=== PATIENT | female | born 1965 | race Caucasian/White ===

== ENCOUNTER → 2017-01-01 | Outpatient (CLI) | payer OTHER ==
--- NOTE | 2017-01-02 08:34 | XR ---
EXAMINATION TYPE: XR chest 2V DATE OF EXAM: 01/01/2017 COMPARISON: NONE HISTORY: Difficulty breathing and tobacco abuse TECHNIQUE: Frontal and lateral views of the chest are obtained. FINDINGS: There is no focal air space opacity, pleural effusion, or pneumothorax seen. The cardiac silhouette size is within normal limits. The osseous structures are intact. Mild degenerative connor es are seen of the thoracic spine. IMPRESSION: No acute cardiopulmonary process.
--- NOTE | 2017-01-02 08:34 | XR ---
EXAMINATION TYPE: XR knee complete LT DATE OF EXAM: 01/01/2017 COMPARISON: NONE HISTORY: Pain TECHNIQUE: Four views are submitted. FINDINGS: Small hypertrophic spurs are seen. Mild narrowing of the joint space in the tricompartment spaces no erosive changes. Osseous structures are intact. No acute fracture seen. IMPRESSION: 1. No acute fracture or dislocation. 2. Mild arthritic change correlate for osteoarthritis.
--- NOTE | 2017-01-02 08:37 | XR ---
EXAMINATION TYPE: XR cervical spine comp DATE OF EXAM: 01/01/2017 COMPARISON: NONE HISTORY: Neck pain TECHNIQUE: Four views are submitted. FINDINGS: The odontoid is intact. There are no compression deformities. The prevertebral soft tissue structur es are within normal limits. Multilevel facet arthropathy noted. There is hypertrophic spurring invo lving the mid and lower cervical spine with disc space loss. Foraminal encroachment at C5-6 and C6-C7 suspected. Foraminal encroachment C3-4 and the left suspected. IMPRESSION: 1. Multilevel degenerative disc disease with the most marked findings involving the mid and lower cer vical region. Correlate with MRI. Multilevel foraminal encroachment suspected.
== END | disposition home or self-care (01) ==
LOC: RADXRMAIN 15:37
PROVIDERS: ATTEND Internal Medicine
DX: M17.12 Unilateral primary osteoarthritis, left knee (principal); M50.320 Other cervical disc degeneration, mid-cervical region, unspecified level; R53.83 Other fatigue; Z72.0 Tobacco use
CPT/HCPCS: 71020; 72050

== ENCOUNTER → 2018-08-19 | Outpatient (CLI) | payer OTHER ==
--- NOTE | 2018-08-20 11:58 | MM ---
Reason for exam: screening (asymptomatic). Last mammogram was performed 1 year and 4 months ago. History: Patient is postmenopausal. Family history of breast cancer in sister at age 56, breast cancer in maternal grandmother at age 40, breast cancer in maternal aunt, and breast cancer in mother at age 60. Physical Findings: A clinical breast exam by your physician is recommended on an annual basis and results should be correlated with mammographic findings. MG Screening Mammo w CAD Bilateral CC, MLO, and XCCL view(s) were taken. Prior study comparison: April 22, 2017, bilateral MG screening mammo w CAD. March 06, 2016, bilateral foundation screening mammo. There are scattered fibroglandular densities. Benign appearing bilateral calcifications. No suspicious abnormality. No significant changes when compared with prior studies. ASSESSMENT: Benign, BI-RAD 2 RECOMMENDATION: Routine screening mammogram of both breasts in 1 year.
== END | disposition home or self-care (01) ==
LOC: RADMAMWWP 14:05
PROVIDERS: ATTEND Internal Medicine
DX: Z12.31 Encounter for screening mammogram for malignant neoplasm of breast (principal)
CPT/HCPCS: 77067

== ENCOUNTER → 2019-02-18 | Outpatient (CLI) | payer MEDICAID ==
--- NOTE | 2019-02-18 12:03 | US ---
EXAMINATION TYPE: US abdomen complete DATE OF EXAM: 02/18/2019 COMPARISON: NONE CLINICAL HISTORY: R10.12 luq pain. Pt states LUQ pain x few months EXAM MEASUREMENTS: Liver Length: 18.3 cm CBD: 0.5 cm Spleen: 13.9 cm Right Kidney: 9.8 x 4.7 x 4.9 cm Left Kidney: 10.3 x 4.9 x 3.9 cm Large pt body habitus Pancreas: wnl, tail obscured by overlying bowel gas Liver: Enlarged. There is increased echogenicity of the hepatic parenchyma with diminished visualiza tion of the portal triads most commonly relating to hepatic steatosis and limiting evaluation for und erlying hepatic masses. Gallbladder: Possible wall echo shadow sign, pt states GB not removed, wall thickness unable to be d elineated Evidence for sonographic Brown's sign: No CBD: wnl Spleen: Upper limits of normal Right Kidney: wnl Left Kidney: wnl Upper IVC: wnl Abd Aorta: Obscured by overlying bowel gas The liver is homogenous. The intrahepatic portion of the IVC is within normal limits. Common bile du ct is unremarkable. The visualized portions of the pancreas are homogenous. The spleen is unremarka ble. Kidneys are symmetric and free of hydronephrosis. No renal lesions are seen. IMPRESSION: 1. Spleen approaches the size criteria for spinal megaly. 2. Gallbladder appears to be filled with calculi and contracted giving the appearance of the wall ech o shadow sign. Common bile duct is within normal limits of size. 3. Obscuration of the pancreatic tail and aorta by overlying bowel gas. 4. Hepatomegaly. Sonographic findings most commonly related to hepatic steatosis. Correlate with live r function tests.
== END | disposition home or self-care (01) ==
LOC: RADUSWWP 10:34
PROVIDERS: ATTEND Internal Medicine
DX: K76.0 Fatty (change of) liver, not elsewhere classified (principal); R16.0 Hepatomegaly, not elsewhere classified; K80.20 Calculus of gallbladder without cholecystitis without obstruction; K86.89 Other specified diseases of pancreas; R14.3 Flatulence
CPT/HCPCS: 76700

== ENCOUNTER 2019-03-23 07:58 | Day surgery (SDC) | payer MEDICAID ==
[2019-03-19 15:49] VITALS: BMI 42.9
[~2019-03-23 07:58] MED LIST: DEXAMETHASONE SOD PHOSPHATE 10 MG/ML 1 ML VIAL IV ONE; HEPARIN SODIUM,PORCINE 5,000 UNIT/ML 1 ML VIAL SQ ONE; HYDROmorphone 0.5 MG/0.5 ML SYRINGE IVP PRN; KETOROLAC 30 MG/ML 1 ML VIAL IVP SCH; LACTATED RINGERS 1,000 ML IV SCH; LIDOCAINE 1% 20 ML VIAL (10MG/ML) FOR IV START INTRADERMA PRN; METOCLOPRAMIDE 5 MG/ML 2 ML VIAL IVP PRN; ONDANSETRON 4 MG/2 ML VIAL IVP ONE
--- NOTE | 2019-03-23 08:38 | P.GSHP ---
History of Present Illness H&P Date: 03/23/19 Chief Complaint: Right upper quadrant pain This is a 53-year-old female who presents today for laparoscopic cholecystectomy. Patient's had complaints of right quadrant pain. Her recent ultrasound shows evidence of cholelithiasis. Past Medical History Past Medical History: Hypertension, Rheumatoid Arthritis (RA) Additional Past Medical History / Comment(s): umbilical hernia, shortness of breath with activity,diverticulitis History of Any Multi-Drug Resistant Organisms: None Reported Past Surgical History: Appendectomy, Section Additional Past Surgical History / Comment(s): ruptured appendix, obstructed bowel age 1 Past Anesthesia/Blood Transfusion Reactions: No Reported Reaction, Family Hist ory of Problems w/ Anesthesia Additional Past Anesthesia/Blood Transfusion Reaction / Comment(s): father difficulty when having scope done quit breathing able to revive Smoking Status: Current every day smoker - Past Family History Father Family Medical History: Cancer Additional Family Medical History / Comment(s): lung cancer Sister(s) Additional Family Medical History / Comment(s): at 31 of lupus Mother Family Medical History: Cancer, Dementia Additional Family Medical History / Comment(s): hx lupus, breast cancer Brother(s) Additional Family Medical History / Comment(s): 5 brothers ,. 1st brother blood clot after bariatric surgery. 2nd brother had agent orange infection from hip surgery and blood clot Medications and Allergies Home Medications Medication Instructions Recorded Confirmed Type Lexapro (Unkn.Dose) 1 tab PO DAILY 03/19/19 03/19/19 History Metoprolol Tartrate [Lopressor] 50 mg PO DAILY 03/19/19 03/19/19 History Naproxen Sodium [Aleve] 220 mg PO DAILY PRN 03/19/19 03/19/19 History Allergies Allergy/AdvReac Type Severity Reaction Status Date / Time latex Allergy Rash/Hives Verified 03/19/19 15:31 Sulfa (Sulfonamide Allergy Anaphylaxis Verified 03/19/19 15:31 Antibiotics) Surgical - Exam Vital Signs Temp Pulse Resp BP Pulse Ox 96.5 F L 81 18 141/95 93 L 03/23/19 08:20 03/23/19 08:20 03/23/19 08:20 03/23/19 08:20 03/23/19 08:20 - General well developed, well nourished, no distress - Eyes PERRL - ENT normal pinna - Neck no masses - Respiratory normal expansion - Cardiovascular Rhythm: regular - Abdomen Mild right upper quadrant tenderness Abdomen: soft Assessment and Plan Assessment: Right upper quadrant pain. We'll perform laparoscopic cholecystectomy.
[2019-03-23 09:05] LABS: Basophils % (A) 0 %; Eosinophils # (A) 0.2 k/uL (0-0.7); Eosinophils % (A) 2 %; HCT 46.4 % (34.0-46.0); HGB 16.1 gm/dL (11.4-16.0); Lymphocytes # (A) 1.6 k/uL (1.0-4.8); Lymphocytes % (A) 20 %; MCH 32.9 pg (25.0-35.0); MCHC 34.8 g/dL (31.0-37.0); MCV 94.6 fL (80.0-100.0); Mean Platelet Volume 7.3; Monocytes # (A) 0.3 k/uL (0-1.0); Monocytes % (A) 4 %; Neutrophils % (A) 72 %; Platelet Count 151 k/uL (150-450); RDW 13.3 % (11.5-15.5); WBC 8.3 k/uL (3.8-10.6)
[2019-03-23] MEDS ORDERED: ROCURONIUM BROMIDE 10 MG/ML 10 ML VIAL IV ONE (09:20)
[2019-03-23] MEDS ORDERED: SUCCINYLCHOLINE CHLORIDE 100 MG/5 ML SYR IV ONE (09:20)
[2019-03-23] MEDS ORDERED: MIDAZOLAM 2 MG/2 ML VIAL ONE (09:20)
[2019-03-23] MEDS ORDERED: GLYCOPYRROLATE 0.2 MG/ML 2 ML VIAL ONE (09:20)
[2019-03-23] MEDS ORDERED: PROPOFOL 10 MG/ML 20 ML VIAL IV ONE (09:20)
[2019-03-23] MEDS ORDERED: fentaNYL (PF) 50 MCG/ML 2 ML AMP ONE (09:20)
[2019-03-23] MEDS ORDERED: METOPROLOL TARTRATE 5 MG/5 ML VIAL IVP ONE (09:20)
[2019-03-23] MEDS ORDERED: NEOSTIGMINE 1 MG/ML 10 ML VIAL ONE (09:20)
[2019-03-23] MEDS ORDERED: KETOROLAC 30 MG/ML 1 ML VIAL ONE (09:20)
[2019-03-23] MEDS ORDERED: ePHEDrine SULFATE/0.9% NACL/PF 50 MG/5 ML SYRINGE IV ONE (09:20)
[2019-03-23] MEDS ORDERED: BUPIVACAINE (PF) 0.5% 30 ML VIAL SQ ONE (09:30)
[2019-03-23] MEDS ORDERED: LACTATED RINGERS 1,000 ML IV ONE (10:15)
--- NOTE | 2019-03-23 10:52 | P.OP ---
Date of Procedure: 03/23/19 Preoperative Diagnosis: Cholecystitis Postoperative Diagnosis: Cholecystitis Cholelithiasis Adenomyosis of gallbladder wall Procedure(s) Performed: Colonoscopy Anesthesia: MAC Surgeon: Allen Cochran Estimated Blood Loss (ml): 20 Pathology: other (Gallbladder) Condition: stable Disposition: PACU Description of Procedure: TThe patient was placed on the operating table. The patient received a general endotracheal tube anesthesia. The patients abdomen was prepped and draped in the usual sterile fashion. Through an infraumbilical stab incision, the fascia of the anterior abdominal wall was grasped with a pair of Kochers and then the Veress needle was placed in the peritoneal cavity. Position of the Veress needle was confirmed with positive drop test. The abdomen was then insufflated. After adequate insufflation, the 10 mm trocar was placed in the peritoneal cavity. Following this the laparoscope was placed in the peritoneal cavity. The patient was placed in the head-up, right side up position and then a 5 mm trocar was placed in the right lateral and right subcostal position under direct visualization. A 8 mm trocar was placed in the epigastric position. The gallbladder wall was quite thickened. The gallbladder was grasped in the fundus and infundibulum. Traction on the gallbladder was placed in the lateral and the cephalad positions. The triangle of Calot was visualized.. There was significant inflammation along the gallbladder and cystic duct. At this point the gallbladder was taken down in a domed down fashion. The infundibulum the gallbladder was then ligated using 2-0 Ethibond tied a device. The gallbladder was then cut and then the Endoloop PDS suture was placed around the gallbladder/cystic duct stump. The gallbladder was placed into an Endo Catch and brought out through the epigastric port site. The abdomen was inspected for bleeding. There is no bleeding seen. The abdomen was irrigated. Operative field was checked for any bleeding spots and Harmonic scissors was used to coagulate the liver bed. The abdomen was irrigated. The trocars were removed. The skin was closed using interrupted 3-0 Vicryl suture. Dermabond dressing were applied. The patient tolerated the procedure well.
[2019-03-23] MEDS ORDERED: DOXAPRAM 20 MG/ML 20 ML VIAL IV ONE (10:59)
[2019-03-23 11:14] VITALS: TEMP 97.9
[2019-03-23 12:50] VITALS: RESP 18
[2019-03-23 13:19] VITALS: BP 121/72; PULSE 63
== END 2019-03-23 13:25 | disposition home or self-care (01) ==
LOC: OR 07:58
PROVIDERS: ATTEND Surgery
DX: K80.10 Calculus of gallbladder with chronic cholecystitis without obstruction (principal); K82.8 Other specified diseases of gallbladder; I10 Essential (primary) hypertension; F39 Unspecified mood [affective] disorder; K57.90 Diverticulosis of intestine, part unspecified, without perforation or abscess without bleeding; M06.9 Rheumatoid arthritis, unspecified; F17.200 Nicotine dependence, unspecified, uncomplicated; Z88.2 Allergy status to sulfonamides; Z91.040 Latex allergy status; Z79.899 Other long term (current) drug therapy; Z90.49 Acquired absence of other specified parts of digestive tract; Z80.1 Family history of malignant neoplasm of trachea, bronchus and lung; Z80.3 Family history of malignant neoplasm of breast; Z83.2 Family history of diseases of the blood and blood-forming organs and certain disorders involving the immune mechanism; Z81.8 Family history of other mental and behavioral disorders; Z87.19 Personal history of other diseases of the digestive system
CPT/HCPCS: 94660; 88304; 85025; 47562; J2250; J1644; J1100; J2710; J0690; J2405; J3010; J1885; J0330; J2704

== ENCOUNTER 2019-04-14 08:55 | Day surgery (SDC) | payer MEDICAID ==
[2019-04-13 12:05] VITALS: BMI 42.9
[~2019-04-14 08:55] MED LIST changes: -KETOROLAC 30 MG/ML 1 ML VIAL IVP SCH; -LIDOCAINE 1% 20 ML VIAL (10MG/ML) FOR IV START INTRADERMA PRN; -METOCLOPRAMIDE 5 MG/ML 2 ML VIAL IVP PRN; +MIDAZOLAM 2 MG/2 ML VIAL IV PRN; +SCOPOLAMINE 1.5MG/72HR PATCH TRANSDERM ONE
[2019-04-14] MEDS ORDERED: LIDOCAINE 1% 20 ML VIAL (10MG/ML) FOR IV START INTRADERMA ONE (10:10)
--- NOTE | 2019-04-14 10:58 | P.GSHP ---
History of Present Illness H&P Date: 04/14/19 Chief Complaint: Umbilical hernia This a 53-year-old female who has developed an umbilical hernia. Patient rents today for laparoscopic robotic-assisted repair. Past Medical History Past Medical History: Hypertension, Rheumatoid Arthritis (RA) Additional Past Medical History / Comment(s): umbilical hernia,shortness of breath with activity,diverticulitis History of Any Multi-Drug Resistant Organisms: None Reported Past Surgical History: Appendectomy, Cholecystectomy Additional Past Surgical History / Comment(s): Cholecystecomy 03-23-19,ruptured appendix,obstructed bowel age 1 Past Anesthesia/Blood Transfusion Reactions: Family History of Problems w/ Anesthesia Additional Past Anesthesia/Blood Transfusion Reaction / Comment(s): father difficulty when having scope doneqit breathing able to revive Smoking Status: Current every day smoker - Past Family History Brother(s) Family Medical History: Deep Vein Thrombosis (DVT) Additional Family Medical History / Comment(s): 5 brothers , blood clot after bariatric surgery,agent orange,infection from hip surgery and blood clot. Mother Family Medical History: Cancer, Dementia Additional Family Medical History / Comment(s): hx lupus,breast cance Sister(s) Additional Family Medical History / Comment(s): at age 31 with lupus Father Family Medical History: Cancer Additional Family Medical History / Comment(s): lung cancer Medications and Allergies Home Medications Medication Instructions Recorded Confirmed Type Escitalopram [Lexapro] 20 mg PO QAM 03/19/19 04/14/19 History Metoprolol Tartrate [Lopressor] 50 mg PO QAM 03/19/19 04/14/19 History Naproxen Sodium [Aleve] 220 mg PO DAILY PRN 03/19/19 04/14/19 History Docusate [Colace] 100 mg PO BID #20 capsule 03/23/19 04/14/19 Rx Allergies Allergy/AdvReac Type Severity Reaction Status Date / Time latex Allergy Rash/Hives Verified 04/14/19 09:56 Sulfa (Sulfonamide Allergy Anaphylaxis Verified 04/14/19 09:56 Antibiotics) Surgical - Exam Vital Signs Temp Pulse Resp BP Pulse Ox 97.4 F L 71 16 163/93 96 04/14/19 09:57 04/14/19 09:57 04/14/19 09:57 04/14/19 09:57 04/14/19 09:57 - General well developed, well nourished, no distress - Eyes PERRL - ENT normal pinna, normal nares - Neck no masses - Respiratory normal expansion - Cardiovascular Rhythm: regular - Abdomen Abdomen: soft, non tender Hernia: umbilical Assessment and Plan Assessment: Incarcerated we'll hernia. We'll perform laparoscopic robotic-assisted repair.
--- NOTE | 2019-04-14 11:11 | P.ANPRN ---
Procedure Note - Anesthesia - Nerve Block Performed Bilateral Transversus Abdominis Single Time Out Performed: Yes Date of Procedure: 04/14/19 Procedure Start Time: 10:54 Procedure Stop Time: 11:06 Location of Patient: PreOp Indication: Acute Post-Operative Pain, Requested by Surgeon Sedation Type: Sedate with meaningful contact maintained Preparation: Sterile Prep, Sterile Dressing Position: Supine Catheter: None Needle Types: Pajunk Needle Gauge: 20 Ultrasound used to visualize needle placement: Yes Ultrasound used to observe medication spread: Yes Injectate: 0.5% Ropivacaine (see comment for volume) (15 ml per side) Blood Aspirated: No Pain Paresthesia on Injection Noted: No Resistance on Injection: Normal Image Stored and Saved: Yes Events: Uneventful and Well Tolerated
[2019-04-14] MEDS ORDERED: IPRATROPIUM-ALBUTEROL 3 ML NEB INHALATION STA (11:13)
[2019-04-14] MEDS ORDERED: ROCURONIUM BROMIDE 10 MG/ML 10 ML VIAL IV ONE (11:21)
[2019-04-14] MEDS ORDERED: NEOSTIGMINE 1 MG/ML 10 ML VIAL ONE (11:21)
[2019-04-14] MEDS ORDERED: SUCCINYLCHOLINE CHLORIDE 100 MG/5 ML SYR IV ONE (11:21)
[2019-04-14] MEDS ORDERED: DEXAMETHASONE SOD PHOSPHATE 4 MG/ML 1 ML VIAL ONE (11:21)
[2019-04-14] MEDS ORDERED: GLYCOPYRROLATE 0.2 MG/ML 2 ML VIAL ONE (11:21)
[2019-04-14] MEDS ORDERED: KETOROLAC 30 MG/ML 1 ML VIAL ONE (11:21)
[2019-04-14] MEDS ORDERED: MIDAZOLAM 2 MG/2 ML VIAL ONE (11:21)
[2019-04-14] MEDS ORDERED: LIDOCAINE 1% INJ 10MG/ML (20 ML MDV) ONE (11:21)
[2019-04-14] MEDS ORDERED: fentaNYL (PF) 50 MCG/ML 2 ML AMP ONE (11:21)
[2019-04-14] MEDS ORDERED: PROPOFOL 10 MG/ML 20 ML VIAL IV ONE (11:21)
[2019-04-14] MEDS ORDERED: BUPIVACAINE (PF) 0.25% 30 ML VIAL SQ ONE (11:50)
[2019-04-14] MEDS ORDERED: LACTATED RINGERS 1,000 ML IV ONE (12:24)
--- NOTE | 2019-04-14 12:27 | P.OP ---
Date of Procedure: 04/14/19 Preoperative Diagnosis: Incarcerated umbilical hernia Postoperative Diagnosis: Incarcerated umbilical hernia Procedure(s) Performed: Laparoscopic robotic system repair of incarcerated we'll hernia Partial omentectomy Anesthesia: ISMAELA Surgeon: Allen Cochran Estimated Blood Loss (ml): 10 Pathology: other (Omentum) Condition: stable Disposition: PACU Description of Procedure: The patient was placed on the operating table in the supine position. He received general anesthesia. His abdomen was prepped and draped usual fashion. Using a 5 mm optical trocar under direct visualization the peritoneal cavity was entered in the left upper quadrant. The abdomen was then insufflated. The laparoscope was placed back into the perineal cavity. Next a 8 mm robotic trocar was placed in the left lower quadrant and a 12 mm robotic trocar was placed in the left lateral position. The original 5 mm trocar was exchanged for a 8 mm robotic trocar. The patient's placed in the left side up position. And the patient was undocked the robot. The umbilical hernia was visualized. Using hook cautery the incarcerated omentum was dissected free and transected and sent to pathology. Using hook cautery the peritoneum over the umbilical hernia was excised. The fascial opening was repaired using 0V LOC suture. Next a piece of 11 cm round ventral light ST mesh was placed into the. Cavity and secured with 2 OV lock suture. The patient was undocked the robot. The needles were retrieved. The fascia of the 12 mm trocar site was closed with 0 Ethibond suture. Skin was closed interrupted 3-0 Monocryl suture. Dermabond dressings was applied. Patient top procedure well and was sent to recovery room stable condition.
[2019-04-14] MEDS ORDERED: FLUMAZENIL 0.1 MG/ML 5 ML VIAL IVP ONE (13:02)
[2019-04-14 13:07] LABS: Glucose,Whole Blood 155 mg/dL (75-99)
[2019-04-14] MEDS ORDERED: PHYSOSTIGMINE SALICYLATE 1 MG/ML 2 ML AMP IVP ONE (13:07)
[2019-04-14 13:15] VITALS: TEMP 96.8
[2019-04-14 14:29] VITALS: RESP 18
[2019-04-14] MEDS ORDERED: HYDROcodone/APAP 5-325MG 1 EACH TAB PO ONE (14:38)
[2019-04-14] MEDS ORDERED: ALBUTEROL NEBULIZED 2.5 MG/3 ML INHALATION STA (15:28)
[2019-04-14 15:36] VITALS: BP 130/84
[2019-04-14 15:53] VITALS: PULSE 61
== END 2019-04-14 16:10 | disposition home or self-care (01) ==
LOC: OR 08:55
PROVIDERS: ATTEND Surgery
DX: K42.0 Umbilical hernia with obstruction, without gangrene (principal); I10 Essential (primary) hypertension; F17.210 Nicotine dependence, cigarettes, uncomplicated; M06.9 Rheumatoid arthritis, unspecified; E66.01 Morbid (severe) obesity due to excess calories; Z87.19 Personal history of other diseases of the digestive system; Z79.899 Other long term (current) drug therapy; Z90.49 Acquired absence of other specified parts of digestive tract; Z98.890 Other specified postprocedural states; Z88.2 Allergy status to sulfonamides; Z91.040 Latex allergy status; Z68.41 Body mass index [BMI] 40.0-44.9, adult; Z82.49 Family history of ischemic heart disease and other diseases of the circulatory system; Z80.3 Family history of malignant neoplasm of breast; Z80.1 Family history of malignant neoplasm of trachea, bronchus and lung
CPT/HCPCS: 94660; 94640 ×2; 64488; 88302; 49653; C1781; J2250; J1644; J1100; J0690; J2405

== ENCOUNTER → 2022-10-30 | Outpatient (CLI) | payer MEDICARE, OTHER ==
--- NOTE | 2022-10-31 16:56 | MM ---
Reason for Exam: Screening (asymptomatic). Last mammogram was performed 4 year(s) and 2 month(s) ago. Patient History: Menarche at age 8. First Full-Term at age 24. Postmenopausal. Maternal grandmother had breast cancer, age 40. Maternal aunt had breast cancer. Sister had breast cancer, age 56. Mother had breast cancer, age 60. Risk Values: Riri 5 year model risk: 5.3%. NCI Lifetime model risk: 25.7%. Prior Study Comparison: 03/06/2016 Bilateral Screening Mammogram, [facility]. 04/22/2017 Bilateral Screening Mammogram, [facility]. 08/19/2018 Bilateral Screening Mammogram, [facility]. Tissue Density: There are scattered fibroglandular densities. Findings: Analyzed By CAD. Pattern appears stable. There are multiple scattered round and spherical calcifications present. Focal asymmetries in the posterior left breast, stable from comparison. No suspicious groups of microcalcifications, spiculated or lobular masses, architectural distortion or other secondary signs of malignancy are mammographically apparent. Overall Assessment: Benign, BI-RAD 2 Management: Screening Mammogram of both breasts in 1 year. A negative mammogram report should not preclude additional follow up of suspicious palpable abnormalities. Patient should continue monthly self breast exam. A clinical breast exam by your physician is recommended on an annual basis and results should be correlated with mammographic findings. Electronically signed and approved by: Adan Cope D.O. Radiologis
== END | disposition home or self-care (01) ==
LOC: RADMAMWWP 15:22
PROVIDERS: ATTEND Family Medicine
DX: Z12.31 Encounter for screening mammogram for malignant neoplasm of breast (principal); Z78.0 Asymptomatic menopausal state; Z80.3 Family history of malignant neoplasm of breast
CPT/HCPCS: 77063; 77067

== ENCOUNTER → 2022-12-05 | Outpatient (CLI) | payer MEDICARE, OTHER ==
--- NOTE | 2022-12-06 18:27 | CTL ---
EXAMINATION TYPE: CT Low Dose Lung DATE OF EXAM ORDERED: 12/05/2022 HISTORY: Z87.891. Current smoker, 35 pack year history. Lung cancer screening CT DLP: 134.[address] CTDI: 4.0 mGy Automated exposure control for dose reduction was used. SCREENING VISIT: First screening visit COMPARISON: None TECHNIQUE: Low dose computed tomography scan was performed through the chest at 1 mm thick sections a nd reconstructed images in multiple planes at 1 mm and [address] DIAGNOSTIC QUALITY: Satisfactory FINDINGS: LUNG NODULES: There is a 4 mm nodule along the right minor fissure (series 4, image 145). This may re present an intrafissural lymph node. LUNGS: COPD: Severity: Minimal Fibrosis: Severity: None Lymph nodes: No Other findings: No RIGHT PLEURAL SPACE: Effusion: None Calcification: None Thickening: None Pneumothorax: None LEFT PLEURAL SPACE: Effusion: None Calcification: None Thickening: None Pneumothorax: None HEART: Heart Size: Normal Coronary Calcification: None Pericardial Effusion: None OTHER FINDINGS: Upper abdomen: None Bony thorax: No acute osseous abnormality. Mild degenerative disc disease of the thoracic spine. Supraclavicular region: None Other: None IMPRESSION: No clinically significant pulmonary nodules. CT LUNG RAD AND CT CHEST RECOMMENDATION: Lung-Rad 2 Benign Appearance or Behavior: Continue annual sc reening with LDCT in 12 months. S Modifier (other clinically significant findings): None
== END | disposition home or self-care (01) ==
LOC: RADCTMAIN 14:48
PROVIDERS: ATTEND Family Medicine
DX: Z12.2 Encounter for screening for malignant neoplasm of respiratory organs (principal); F17.210 Nicotine dependence, cigarettes, uncomplicated
CPT/HCPCS: 71271